=== PATIENT | female | born 1950 | race Caucasian/White ===

== ENCOUNTER 2017-01-25 13:32 | Day surgery (SDC) | payer OTHER ==
--- NOTE | ~2017-01-25 | EGD ---
EGD REPORT [facility] [address] [address] NAME: ANH ZAMARRIPA : 52 STATUS : REG [facility]#: [id number] AGE: 66 ADM/REG DATE : 01/25/17 MR#: [id number] REPORT SERV DATE: 01/25/17 DICTATED BY: DATE: REPORT STATUS : Draft TRANSCRIBED BY: [employer] DATE: 01/25/17 [facility] Patient Name: Anh Zamarripa Date of : 1950 Attending MD: HEATH GRIFFITH MD Procedure Date No Time: 01/25/2017 Procedure: Upper GI endoscopy Indications: Dysphagia Referring MD: KYM BRYSON Medicines: Monitored Anesthesia Care Complications: No immediate complications. Procedure: Pre-Anesthesia Assessment: - ASA Grade Assessment: II - A patient with mild systemic disease. After obtaining informed consent, the endoscope was passed under direct vision. Throughout the procedure, the patient's blood pressure, pulse, and oxygen saturations were monitored continuously. The GIF [id number] was introduced through the mouth, and advanced to the third part of duodenum. The upper GI endoscopy was accomplished without difficulty. The patient tolerated the procedure well. Findings: A 5 cm hiatus hernia was present. A benign-appearing, intrinsic mild stenosis measuring less than one cm (in length) was found at the gastroesophageal junction and was traversed. A guidewire was placed and the scope was withdrawn. Dilation was performed with a Savary dilator with no resistance at 57 Fr. 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 The maximum longitudinal extent of these mucosal changes was 0.5 cm in length. No other significant abnormalities were identified in a careful examination of the esophagus. There is no endoscopic evidence of areas of erosion, ulcerations or varices in the entire esophagus. The entire examined stomach was normal. There is no endoscopic evidence of erythema, ulceration or varices in the entire examined stomach. The examined duodenum was normal. There is no endoscopic evidence of inflammation, mucosal abnormalities or ulceration in the entire examined duodenum. The cardia and gastric fundus were otherwise normal on retroflexion. Impression: - Hiatus hernia. EGD REPORT [address] [address] NAME: ANH ZAMARRIPA : 52 [place]US : [place] [facility] [place] [id number] AGE: 66 ADM/REG DATE : 01/25/17 MR#: [id number] REPORT SERV DATE: 01/25/17 DICTATED BY: DATE: REPORT STATUS : Draft TRANSCRIBED BY: [employer] DATE: 01/25/17 - Benign-appearing esophageal stricture. Dilated. - Kilgore's esophagus. Biopsies not repeated at this juncture. - Normal stomach. Improved from prior examination. - Normal examined duodenum. Recommendation: - Patient has a contact number available for emergencies. The signs and symptoms of potential delayed complications were discussed with the patient. Return to normal activities tomorrow. Written discharge instructions were provided to the patient. - Return to previous diet. - Discharge patient to home. - Continue present medications. Procedure Code(s): --- Professional --- 97365, Esophagogastroduodenoscopy, flexible, transoral; with insertion of guide wire followed by passage of dilator(s) through esophagus over guide wire Diagnosis Code(s): --- Professional --- K44.9, Diaphragmatic hernia without obstruction or gangrene K22.2, Esophageal obstruction K22.70, Kilgore's esophagus without dysplasia R13.10, Dysphagia, unspecified CPT copyright 2013 [employer]. All rights reserved. The codes documented in this report are preliminary and upon coding compliance specialist review may be revised to meet current compliance requirements. HEATH GRIFFITH MD 01/25/2017 3:37 PM This report has been signed electronically. Number of Addenda: 0 Note Initiated On: 01/25/2017 3:09 PM Scope Withdrawal Time 0 hours 0 minutes 0 seconds [address] [place] [address]
[~2017-01-25 13:32] MED LIST: ALAWAY0.025 % OPH; AMIT OR; COVARYX PO; EEMT PO; FRESHKOTE OPH; GAVISCON6 OR; IMOD PO; NEXIUM40 PO; NORITATE1% TOP; NORV5 PO; OMEGA PO; PEPCID40 MG PO; PERPHEN AMITRIP PO; PERPHEN OR; PERPHENAZINE2 MG; PRAVACHOL40 MG PO; PRIN20 PO; PROTONIX PO; PROTONIX20 MG PO; REFRESH PLUS O0.4 ML OPH; VIACTIV PO; VITAMIN D1000 UNI1 PO; ZESTORETIC PO; ZYRTEC ALLGY10 MG PO
== END 2017-01-25 23:59 | disposition home or self-care (01) ==
LOC: DMU 13:32
PROVIDERS: Internal Medicine Gastroenterology
PROC: 0D758ZZ Dilation of Esophagus, Via Natural or Artificial Opening Endoscopic (ICD-10-PCS; principal; 2017-01-25 15:00)
DX: K22.2 Esophageal obstruction (principal); K44.9 Diaphragmatic hernia without obstruction or gangrene; G40.909 Epilepsy, unspecified, not intractable, without status epilepticus; E78.5 Hyperlipidemia, unspecified; I12.9 Hypertensive chronic kidney disease with stage 1 through stage 4 chronic kidney disease, or unspecified chronic kidney disease; K21.9 Gastro-esophageal reflux disease without esophagitis; N18.1 Chronic kidney disease, stage 1; Z88.8 Allergy status to other drugs, medicaments and biological substances

== ENCOUNTER 2017-01-26 06:44 | Emergency (ER) | payer OTHER ==
[2017-01-26 05:12] LABS: BASOPHILS 0.3 %; BASOPHILS ABSOLUTE 0.02 10/3/uL (0.0-0.16); EOSINOPHILS 3.2 %; EOSINOPHILS ABSOLUTE 0.25 10/3/uL (0.0-0.53); ER CBC TAT 0 Hrs 12 Mins; HEMATOCRIT 41.1 % (36.0-48.0); HEMOGLOBIN 14.1 g/dL (12.0-16.0); IMMATURE GRANULOCYTES 0.1 %; IMMATURE GRANULOCYTES ABSOLUTE 0.01 10/3/uL (0.0-0.11); LYMPHOCYTES 14.3 %; LYMPHOCYTES ABSOLUTE 1.13 10/3/uL (0.67-4.30); MEAN CORPUS HGB CONC 34.3 g/dL (32.0-36.0); MEAN CORPUSCULAR HEMOGLOB 28.8 pg (26.0-34.0); MEAN CORPUSCULAR VOLUME 83.9 fL (80-100); MEAN PLATELET VOLUME 10.2 fL (9.2-13.0); MONOCYTES 10.9 %; MONOCYTES ABSOLUTE 0.86 10/3/uL (0.21-1.20); NEUTROPHILS 71.2 %; NEUTROPHILS ABSOLUTE 5.64 10/3/uL (2.02-8.40); PARTIAL THROMBO TIME 26.3 SEC (22.5-37.2); PLATELET COUNT 240 10/3/uL (150-400); PROTIME (NOT ORD) 13.5 SEC (12.0-14.5); RBC DISTRIBUTION WIDTH 13.6 % (12.0-16.0); WHITE BLOOD CELLS 7.9 10/3/uL (4.5-10.5)
[2017-01-26 05:13] LABS: MANUAL DIFF NO %
[2017-01-26 05:19] LABS: A/G RATIO 0.7 (0.7-1.9); ALKALINE PHOSPHATASE 75 U/L (45-117); BUN (BLOOD UREA NITROGEN) 18 MG/DL (6-23); CALCIUM, SERUM 8.8 MG/DL (8.5-10.4); CHLORIDE, SERUM 106 MMOL/L (96-112); CO2 (CARBON DIOXIDE) 28 MMOL/L (24-34); CREATININE 1.17 MG/DL (0.55-1.02); GFR AFRICAN AMERICAN 57 ML/MIN (>=60); GFR NON AFRICAN AMERICAN 49 ML/MIN (>=60); GLOBULIN 4.3 G/DL (2.5-4.1); GLUCOSE, SERUM 100 MG/DL (60-99); SGPT(ALT) 17 U/L (5-65); SODIUM, SERUM 141 MMOL/L (135-148); TOTAL BILIRUBIN 0.4 MG/DL (0-1.2); TOTAL PROTEIN 7.3 G/DL (6.0-8.5)
[2017-01-26 05:20] LABS: POTASSIUM, SERUM 4.6 MMOL/L (3.5-5.3); SGOT(AST) 28 U/L (5-40)
== END 2017-01-26 06:59 | disposition home or self-care (01) ==
LOC: ER 06:44
PROVIDERS: Specialist
DX: K92.2 Gastrointestinal hemorrhage, unspecified (principal); I10 Essential (primary) hypertension; K21.9 Gastro-esophageal reflux disease without esophagitis; Z88.8 Allergy status to other drugs, medicaments and biological substances
CPT/HCPCS: 36415; 80053; 85025; 85610; 85730; 86850; 86900; 86901; 93005; 96374; 99285; C9113